=== PATIENT | female | born 1940 | race Caucasian/White ===

== ENCOUNTER 2022-01-12 00:19 | Inpatient (IN) | payer OTHER ==
[~2022-01-12] VITALS: Ht 152.4 cm; Wt 59.0 kg
--- NOTE | 2022-01-12 00:25 | NUR ---
TO ER BED 8. MARLO FROM [facility] FOR SOB. ARRIVED ON CPAP. PT AAOX1. RT AT BEDSIDE, SWITCHED TO 15L ON NONREBREATHER O2 SAT @ 98 . CONNECTED TO MONITOR. MULTIPLE SKIN TEARS NOTED ON ARRIVAL, CLEANED AND DRESSED. MD AT BEDSIDE
--- NOTE | 2022-01-12 00:32 | NUR ---
BLOOD COLLECTED AND SENT TO LAB
--- NOTE | 2022-01-12 00:33 | NUR ---
CHAMBER MAGISTRATE AT PT'S BEDSIDE
--- NOTE | 2022-01-12 00:36 | NUR ---
URINE COLLECTED AND SENT TO LAB
--- NOTE | 2022-01-12 00:36 | NUR ---
COVID SWAB DONE AND SENT TO LAB
--- NOTE | 2022-01-12 00:37 | NUR ---
EMT AT BEDSIDE FOR EKG
[2022-01-12] MEDS ORDERED: ACETAMINOPHEN 650 MG/SUPP.RECT RC ONE ×2 (00:43→01:00)
[2022-01-12 00:49] LABS: BASOPHILS % (AUTO) 0.5 % (0.0-2.0); EOSINOPHILS % (AUTO) 0.6 % (0.0-6.0); HEMATOCRIT 42 % (33-45); HEMOGLOBIN 13.9 g/dL (11.5-14.8); LYMPHOCYTES # (AUTO) 2.7 K/uL (0.8-4.8); LYMPHOCYTES % (AUTO) 31.4 % (20.0-44.0); MEAN CORPUSCULAR HGB CONC 33 g/dl (31.0-36.0); MEAN CORPUSCULAR VOLUME 87 fL (82-100); MONOCYTES # (AUTO) 0.7 K/uL (0.1-1.30); MONOCYTES % (AUTO) 8.6 % (2.0-12.0); NEUTROPHILS % (AUTO) 58.9 % (43.0-81.0); PLATELET COUNT (AUTO) 245 K/uL (150-450); RED BLOOD CELL COUNT(AUTO) 4.83 MIL/uL (4.0-5.2); WHITE BLOOD COUNT (AUTO) 8.5 K/uL (4.3-11.0)
[2022-01-12] MEDS ORDERED: VANCOMYCIN 1 GM VIAL ONE (00:56)
[2022-01-12] MEDS ORDERED: PIPERACILLIN /TAZOBACTAM 3.375 G VIAL IV ONE (00:56)
[2022-01-12] MEDS ORDERED: APIX5TAB4 PO (00:58)
[2022-01-12] MEDS ORDERED: DIPH1TAB PO (00:58)
[2022-01-12] MEDS ORDERED: PANT40TA49 PO (00:58)
[2022-01-12] MEDS ORDERED: TRAZ-257 PO (00:58)
[2022-01-12] MEDS ORDERED: ARIP10TA9 PO (00:58)
[2022-01-12] MEDS ORDERED: BALS750C7 PO (00:58)
[2022-01-12] MEDS ORDERED: METO25TA4 PO (00:58)
[2022-01-12] MEDS ORDERED: CLON0.5T PO (00:58)
[2022-01-12] MEDS ORDERED: ESCI5TAB PO (00:58)
[2022-01-12] MEDS ORDERED: VANCOMYCIN 1 GM in IV D5W 250 ML IV ONE (01:00)
[2022-01-12] MEDS ORDERED: PIPERACILLIN /TAZOBACTAM 3.375 G in IV D5W 50 ML IV ONE (01:00)
[2022-01-12 01:14] LABS: ALANINE AMINOTRANSFERASE 12 U/L (12-78); ALBUMIN 2.3 g/dL (3.4-5.0); ALKALINE PHOSPHATASE 64 U/L (46-116); ASPARTATE AMINOTRANSFERASE 34 U/L (15-37); BILIRUBIN,TOTAL 0.5 mg/dL (0.2-1.0); CALCIUM, SERUM 9.2 mg/dL (8.5-10.1); CARBON DIOXIDE 35 mmol/L (21-32); CHLORIDE 101 mmol/L (98-107); CREATININE 0.6 mg/dL (0.6-1.3); GLUCOSE 105 mg/dL (74-106); POTASSIUM 4.3 mmol/L (3.5-5.1); SODIUM SERUM 137 mmol/L (136-145); TOTAL PROTEIN, SERUM 6.6 g/dL (6.4-8.2); UREA NITROGEN, BLOOD 10 mg/dL (7-18)
[2022-01-12 01:46] LABS: BILIRUBIN,URINE NEGATIVE (NEGATIVE); COLOR,URINE YELLOW (YELLOW); LEUKOCYTE ESTERASE ,URINE NEGATIVE (NEGATIVE); NITRITE, URINE NEGATIVE (NEGATIVE); PROTEIN,URINE NEGATIVE (NEGATIVE); UGLUCOSE NEGATIVE (NEGATIVE); UROBILINOGEN,URINE 0.2 EU/dL (0.2)
--- NOTE | 2022-01-12 03:00 | NUR ---
REC' VERBAL AUTH FROM IRIS AT [facility] TO ADMIT THE PATIENT HERE
--- NOTE | 2022-01-12 03:07 | NUR ---
DR CORBIN ON THE PHONE WITH DR GALVIN
--- NOTE | 2022-01-12 03:32 | NUR ---
ROOM 323-1
--- NOTE | 2022-01-12 03:47 | NUR ---
REPORT GIVEN TO KLEVER JOHNSON
[2022-01-12 04:15] VITALS: BP 107/58
[2022-01-12] MEDS ORDERED: ACETAMINOPHEN 325 MG TABLET PO PRN (04:30)
--- NOTE | 2022-01-12 05:17 | NUR ---
RN NOTES; RECEIVED PT FROM ER IN RM 323-1 AOX1-2 WITH 10L OXYGEN VIA NC EMERALD WELL SATTING 98%.NO SIGN SOB/DISTRESS NOTED.NO COMPLAINE OF PAIN/DISCOMFORT AT THIS TIME.IV SITE R WRIST 20G.SL PATENT AND INTACT.PT WAS REORIENT THE RM AND VERBALLY UNDERSTANDING.SAFETY MEASURE INPLACE.CALL LIGHT WITHIN REACH.WILL CONTINUE TO MONITOR.
--- NOTE | 2022-01-12 06:25 | NUR ---
RN CLOSING NOTES; PT IN BED SLEEPING BUT EASY TO AROUSED.AOX1-2 EMERALD WELL 10L O2 VIA NC SATTING 97.4,NO SIGN SOB/DISTRESS NOTED.DUE MEDS GIVEN ORDERED,ALL NEEDS ATTENDED.IV SITE ON R WRIST 20G SALINE LOCKED.PATENT AND INTACT.SAFETY MEASURED IN PLACE.CALL LIGHT WITHIN REACH.WILL ENDORSED TO NEXT SHIFT.
--- NOTE | 2022-01-12 07:41 | NUR ---
RN OPENING NOTE RECEIVED REPORT FROM NIGHTSHIFT RN. PATIENT CURRENTLY IN BED RESTING. ON ROOM AIR. PER NIGHTSHIFT RN PATIENT IS A/O TIMES 1-2. ATTACHED TO EXTERNAL RECORDS MANAGEMENT DIRECTOR READING SINUS RHYTHM IN THE 70S. LANDON CATHETER ATTACHED DRAINING URINE. SKIN ALTERATIONS DOCUMENTED. IV ACCESS ON RIGHT HAND 20 GAUGE SALINE LOCK, FLUSHING EASILY WITH NO RESISTANCE. SAFETY MEASURES IMPLEMENTED, BED IN LOWEST LOCKED POSITION, SIDE RAILS UP, CALL LIGHT WITHIN REACH. WILL CONTINUE PLAN OF CARE AND ANTICIPATE NEEDS.
[2022-01-12] MEDS: PIPERACILLIN /TAZOBACTAM 3.375 G in IV D5W 50 ML IV SCH ×3 (08:14→17:18)
[2022-01-12] MEDS: PANTOPRAZOLE 40 MG TABLET.DR PO SCH (08:30)
--- NOTE | 2022-01-12 08:31 | NUR ---
NON ADMIN FOR PROTONIX. PATIENT HAS EATEN BREAKFAST. MEDICATION WILL NOT HAVE DESIRED EFFECTS IF TAKEN AFTER BREAKFAST. WILL CONTINUE PLAN OF CARE.
[2022-01-12] MEDS: DIPHENOXYLATE HCL/ATROP SULF 1 UDTAB TABLET PO SCH ×3 (09:00→17:18)
[2022-01-12] MEDS ORDERED: APIXABAN 5 MG TABLET PO SCH (09:00)
[2022-01-12] MEDS: BALSALAZIDE DISODIUM 750 MG CAPSULE PO SCH ×3 (09:00→17:00)
--- NOTE | 2022-01-12 09:11 | NUR ---
PROVIDER REQUESTED OXYGEN SATURATION READING FOR PATIENT ON ROOM AIR. DURING ASSESSMENT OXYGEN SATURATION ON ROOM AIR WAS IN THE 90S. PROVIDER GAVE VERBAL ORDER TO SWITCH FROM SIMPLE FACE MASK TO NASAL CANULA RUNNING 1-2 LITERS OXYGEN PER MINUTE. WILL CARRY OUT ORDER AND CONTINUE PLAN OF CARE.
[2022-01-12] MEDS: clonazePAM 0.5 MG TABLET PO SCH ×2 (09:28→20:53)
[2022-01-12] MEDS: METOPROLOL SUCCINATE 25 MG TAB.SR.24H PO SCH (09:30)
[2022-01-12] MEDS: ARIPIPRAZOLE 5 MG TABLET PO SCH (09:30)
[2022-01-12] MEDS: ESCITALOPRAM OXALATE (10 MG) 10 MG TABLET PO SCH (09:31)
[2022-01-12 11:07] VITALS: BP 124/65
[2022-01-12] MEDS: IPRATROPIUM NEB FS 0.5 MG/2.5 ML AMPUL.NEB NEB SCH ×3 (16:16→23:02)
[2022-01-12 16:26] VITALS: BP 122/60
[2022-01-12] MEDS: APIXABAN 5 MG TABLET PO SCH (17:21)
--- NOTE | 2022-01-12 18:45 | NUR ---
RN CLOSING NOTE PATIENT CURRENTLY IN BED RESTING. ON SUPPLEMENTAL OXYGEN 2 LITERS VIA NASAL CANULA. PATIENT IS A/O TIMES 1-2. ATTACHED TO EXTERNAL MANAGER PLAN READING SINUS RHYTHM AT 79 BEATS PER MINUTE. LANDON CATHETER ATTACHED DRAINING CLEAR YELLOW URINE. SKIN ALTERATIONS DOCUMENTED. IV ACCESS ON RIGHT HAND 20 GAUGE SALINE LOCK, FLUSHING EASILY WITH NO RESISTANCE. SAFETY MEASURES IMPLEMENTED, BED IN LOWEST LOCKED POSITION, SIDE RAILS UP, CALL LIGHT WITHIN REACH. WILL ENDORSE TO NIGHTSHIFT RN FOR CONTINUATION OF CARE.
[2022-01-12] MEDS ORDERED: ONDANSETRON HCL/PF 4 MG/2 ML VIAL IV PRN (19:00)
--- NOTE | 2022-01-12 19:15 | NUR ---
RN opening notes Pt is laying in bed comfortably watching TV. Pt is alert and orientedX2. On 2 L NC. No SOB. No SOB. No S/S of distress noted. IV site at R hand# 20 is clean, intact and flushes well. Tele monitor showed SR hr at 75. Mcnulty cath is inplaced and draining yellow urine. safety precautions is maintained. bed at low position, brakes locked, side rails upX3, hob elevated, bed alarm is on and call light is within reach. Will continue to monitor.
[2022-01-12 20:00] VITALS: BP 103/52
[2022-01-12] MEDS: ALBUTEROL HALF STRENGTH 1.25 MG/3 ML VIAL.NEB NEB SCH ×2 (20:11→23:02)
[2022-01-12] MEDS ORDERED: TRAZODONE 50 MG TABLET PO SCH (22:00)
[2022-01-12] MEDS ORDERED: VANCOMYCIN 1 GM in IV D5W 250 ML IV SCH (23:00)
[2022-01-13] VITALS: BP 110/60
[2022-01-13] MEDS: PIPERACILLIN /TAZOBACTAM 3.375 G in IV D5W 50 ML IV SCH ×3 (00:58→12:03)
[2022-01-13] MEDS: IPRATROPIUM NEB FS 0.5 MG/2.5 ML AMPUL.NEB NEB SCH ×4 (03:30→15:16)
[2022-01-13] MEDS: ALBUTEROL HALF STRENGTH 1.25 MG/3 ML VIAL.NEB NEB SCH ×4 (03:30→15:16)
[2022-01-13 04:00] VITALS: BP 124/68
[2022-01-13 06:06] LABS: BASOPHILS % (AUTO) 0.3 % (0.0-2.0); EOSINOPHILS % (AUTO) 0.7 % (0.0-6.0); HEMATOCRIT 35 % (33-45); LYMPHOCYTES # (AUTO) 1.8 K/uL (0.8-4.8); LYMPHOCYTES % (AUTO) 25.2 % (20.0-44.0); MEAN CORPUSCULAR HGB CONC 34 g/dl (31.0-36.0); MEAN CORPUSCULAR VOLUME 86 fL (82-100); MONOCYTES # (AUTO) 0.9 K/uL (0.1-1.30); MONOCYTES % (AUTO) 12.9 % (2.0-12.0); NEUTROPHILS # (AUTO) 4.3 K/uL (1.8-8.9); NEUTROPHILS % (AUTO) 60.9 % (43.0-81.0); PLATELET COUNT (AUTO) 239 K/uL (150-450); RED BLOOD CELL COUNT(AUTO) 4.11 MIL/uL (4.0-5.2); WHITE BLOOD COUNT (AUTO) 7.1 K/uL (4.3-11.0)
--- NOTE | 2022-01-13 06:30 | NUR ---
RN closing notes Pt is resting in bed comfortably. Pt is alert and orientedX2. On 2 L NC. No SOB. No SOB. No S/S of distress noted. IV site at R hand# 20 is clean, intact and SL. Tele monitor showed Sr hr at 90. Mcnulty cath is inplaced and draining dark yellow urine 600 ml. Routine meds were given as ordered. Kept Pt clean, dry and comfortable. wound care provided as ordered. safety precautions is maintained. bed at low position, brakes locked, side rails upX3, hob elevated, bed alarm is on and call light is within reach. Will endorse to am nurse for DESMOND.
[2022-01-13 07:01] LABS: CALCIUM, SERUM 8.9 mg/dL (8.5-10.1); CREATININE 0.6 mg/dL (0.6-1.3)
--- NOTE | 2022-01-13 07:19 | NUR ---
RECIPROCATING DRILL OPERATOR OPENING NOTES PATIENT RECEIVED AWAKE IN BED IN NO ACUTE SIGN SOF DISTRESS. HOB ELEVATED. A/O TIMES 1-2. VERBALLY RESPONSIVE, NO S/S OF PAIN OBSERVED AT THIS TIME. ON SUPPLEMENTAL O2 VIA N/C @ 2LPM, TOLERATING WELL WITH NO SOB NOTED. ON TELE-MONITOR WITH CURRENT READING OF NSR, HR 89, NO C/O CARDIAC DISTRESS VOICED AT THIS TIME. LANDON CATHETER IN PLACE AND DRAINING CLEAR YELLOW URINE TO GRAVITY. IV ACCESS ON RIGHT HAND G#20 GAUGE INTACT AND PATENT. SAFETY MEASURES IN PLACE: BED IN LOWEST LOCKED POSITION, SIDE RAILS UPX3, CALL LIGHT WITHIN REACH. WILL CONTINUE TO MONITOR PT ACCORDINGLY.
[2022-01-13] MEDS: PANTOPRAZOLE 40 MG TABLET.DR PO SCH (07:32)
[2022-01-13 08:00] VITALS: BP 127/65
--- NOTE | 2022-01-13 08:02 | NUR ---
WOUND CARE CONSULT: PT PRESENTS WITH MULTIPLE AREAS OF SKIN DISCOLORATION, RAISED AREAS ON SKIN INCLUDING LEFT HAND/WRIST AND SIGNIFICANT SKIN TEARS TO LEFT WRIST AND ARM, SCABS TO RT ARM AND LOWER LEG WITH RAISED AREA TO RT LOWER LEG AND RASH TO BUTTOCKS WITH SOME GLUTEAL CREASE OPEN SKIN, ALL PRESENT ON ADMISSION. BARBI HERNANDEZ NOTED. RECOMMEND SURGICAL AND DPM CONSULTS. DR CHANDLER TELLEZ AND DR MITCHELL CALLED FOR CONSULT REQUESTS. DISCUSSED WOUND CARE AND SKIN PROTECTION RECOMMENDATIONS WITH NURSING STAFF. IN AGREEMENT WITH PLAN OF CARE. Addendum: 01/13/22 at 0808 by HARPREET PERALTA WNDNU Amended: Links added.
[2022-01-13] MEDS ORDERED: AMOX-430 PO (08:29)
[2022-01-13 08:35] LABS: POTASSIUM 2.8 mmol/L (3.5-5.1)
[2022-01-13 08:58] VITALS: BP 127/65
[2022-01-13] MEDS: METOPROLOL SUCCINATE 25 MG TAB.SR.24H PO SCH (08:58)
[2022-01-13] MEDS: clonazePAM 0.5 MG TABLET PO SCH (08:58)
[2022-01-13] MEDS: ESCITALOPRAM OXALATE (10 MG) 10 MG TABLET PO SCH (08:58)
[2022-01-13] MEDS: DIPHENOXYLATE HCL/ATROP SULF 1 UDTAB TABLET PO SCH ×2 (08:58→13:09)
[2022-01-13] MEDS: ARIPIPRAZOLE 5 MG TABLET PO SCH (08:58)
[2022-01-13] MEDS: APIXABAN 5 MG TABLET PO SCH (09:00)
[2022-01-13] MEDS ORDERED: POTASSIUM CHLORIDE 20 MEQ TAB.PRT.SR PO ONE (09:00)
[2022-01-13] MEDS ORDERED: CLOTRIMAZOLE 1% 15 GM TUBE TP SCH (09:00)
[2022-01-13] MEDS: BALSALAZIDE DISODIUM 750 MG CAPSULE PO SCH ×2 (09:00→13:00)
--- NOTE | 2022-01-13 09:43 | NUR ---
RN NOTES RECEIVED CALL FROM CHIEF SECURITY AND SAFETY OFFICER CONSUELO THAT PT HAS LOW POTASSIUM 2.8. DR GALVIN ON UNIT AND MADE AWARE AND ORDERED K-DUR 80MEQ PO. MED GIVEN TO PT AND TOLERATED WELL.
--- NOTE | 2022-01-13 12:39 | NUR ---
RN NOTES SPOKED TO [facility] WATER METER READER MARCUS AND REQUESTED PRESCRIPTION OF AUGMENTIN TO BE FAXED TO [facility] AND WAS DONE AND CONFIRMED THAT PHARMACY RECEIVED IT.
--- NOTE | 2022-01-13 14:41 | NUR ---
RN NOTES CALLED [facility], SPOKED TO EVENT PLANNER PRATIMA REGARDING PT'S D/C INSTRUCTIONS. ALSO LEFT VOICEMAIL TO PT'S SON DURAN THAT PT WILL BE TRANSFERRED BACK TO [facility] THIS AFTERNOON.
--- NOTE | 2022-01-13 16:56 | NUR ---
RN DISCHARGED NOTES PT DISCHARGED TO [facility] IN STABLE CONDITION.PT IS A/O X2-3. VERBALLY RESPONSIVE. ALL BELONGINGS ACCOUNTED FOR. IV ACCESS ON RIGHT HAND G#20 REMOVED WITH MINIMAL BLEEDING NOTED AT SITE DUE TO PT RECEIVING ELIQUIS BID, DRY PRESSURE DRESSING APPLIED AT SITE. PHOTO OF SKIN ISSUES TAKEN AND FILED ON HER CHART. CALLED AND DISCHARGE INSTRUCTIONS GIVEN EARLIER TO ERIS, RESERVATION SALES AGENT OF [facility] . LANDON CATHETER REMOVED WITH 400ML OUTPUT NOTED. PT LEFT UNIT @ 1645 VIA GURNEY AND ON 02 VIA N/C AT 2LPM, TOLERATING WELL WITH NO SOB NOTED ACCOMPANIED BY 3 EMT'S FROM [facility]. MD AND CHARGE NURSE AWARE OF DISCHARGE.
[2022-01-15] MEDS ORDERED: APIXABAN 5 MG TABLET PO SCH (09:00)
== END 2022-01-13 16:45 | DRG 177 ==
LOC: EDSEX 00:21 → ER 00:21 → TELE 03:41
PROVIDERS: ADMIT Internal Medicine; ATTEND Internal Medicine
DX: J69.0 Pneumonitis due to inhalation of food and vomit (principal); J96.21 Acute and chronic respiratory failure with hypoxia; J96.22 Acute and chronic respiratory failure with hypercapnia; J98.11 Atelectasis; Z66 Do not resuscitate; I10 Essential (primary) hypertension; Z79.01 Long term (current) use of anticoagulants; Z79.899 Other long term (current) drug therapy; F32.A Depression, unspecified; F41.9 Anxiety disorder, unspecified; Z86.718 Personal history of other venous thrombosis and embolism; K52.9 Noninfective gastroenteritis and colitis, unspecified; F39 Unspecified mood [affective] disorder; M06.9 Rheumatoid arthritis, unspecified; M20.41 Other hammer toe(s) (acquired), right foot; M20.42 Other hammer toe(s) (acquired), left foot; Z74.01 Bed confinement status; S81.801A Unspecified open wound, right lower leg, initial encounter; X58.XXXA Exposure to other specified factors, initial encounter; Y92.9 Unspecified place or not applicable
CPT/HCPCS: 36415; 71045-TC; 80048-TC; 80076-TC; 83605-TC; 83880; 84484-TC; 85025-TC; 85730-TC; 87040-TC; 87081-TC; 92526; 92611-TC; 93307-TC; 94799-TC; A6253; A6403; C9803; G0378; J2543; J3370; J7050; J7060

== ENCOUNTER 2022-01-28 06:06 | Inpatient (IN) | payer OTHER ==
[~2022-01-28] VITALS: Ht 152.4 cm; Wt 61.7 kg
[~2022-01-28 06:06] MED LIST: AMOX-430 PO; APIX5TAB4 PO; ARIP10TA9 PO; BALS750C7 PO; CLON0.5T PO; DIPH1TAB PO; ESCI5TAB PO; METO25TA4 PO; PANT40TA49 PO; TRAZ-257 PO
--- NOTE | 2022-01-28 06:21 | NUR ---
PT BIBRA FOR C/O SOB AND LOW O2 SAT 90% RA. PT ARRIVED VIA EMS ON 15LPM NRB AT 98%. PT AWAKE AND ALERT X3 BREATHING UNLANORED. NOTED BUE EDEMA X1 WEEK PER PT. PLACED ON MONITOR AND V/S WNL. WAS AT BEDSIDE FOR EVAL.
--- NOTE | 2022-01-28 06:25 | NUR ---
22g ESTABLISHED AT . BLOOD DRAWN AND SENT TO LAB
[2022-01-28] MEDS ORDERED: VANCOMYCIN 1 GM in IV D5W 250 ML IV ONE (06:30)
[2022-01-28] MEDS ORDERED: PIPERACILLIN /TAZOBACTAM 3.375 G VIAL IV ONE (06:30)
[2022-01-28] MEDS ORDERED: PIPERACILLIN /TAZOBACTAM 3.375 G in IV D5W 50 ML IV ONE (06:30)
--- NOTE | 2022-01-28 06:31 | NUR ---
BLUE COLLECTED AND SENT TO LAB
[2022-01-28 06:45] LABS: BASOPHILS % (AUTO) 0.4 % (0.0-2.0); EOSINOPHILS % (AUTO) 1.4 % (0.0-6.0); HEMATOCRIT 42 % (33-45); HEMOGLOBIN 13.3 g/dL (11.5-14.8); LYMPHOCYTES # (AUTO) 1.5 K/uL (0.8-4.8); LYMPHOCYTES % (AUTO) 14.9 % (20.0-44.0); MEAN CORPUSCULAR HGB CONC 32 g/dl (31.0-36.0); MEAN CORPUSCULAR VOLUME 87 fL (82-100); MONOCYTES % (AUTO) 10.6 % (2.0-12.0); NEUTROPHILS # (AUTO) 7.1 K/uL (1.8-8.9); NEUTROPHILS % (AUTO) 72.7 % (43.0-81.0); PLATELET COUNT (AUTO) 302 K/uL (150-450); RED BLOOD CELL COUNT(AUTO) 4.75 MIL/uL (4.0-5.2); WHITE BLOOD COUNT (AUTO) 9.8 K/uL (4.3-11.0)
--- NOTE | 2022-01-28 06:47 | NUR ---
PT TRANSPORTED TO [facility]
[2022-01-28 06:58] LABS: CALCIUM, SERUM 9.7 mg/dL (8.5-10.1); CARBON DIOXIDE 35 mmol/L (21-32); CHLORIDE 104 mmol/L (98-107); CREATININE 0.6 mg/dL (0.6-1.3); GLUCOSE 114 mg/dL (74-106); POTASSIUM 3.5 mmol/L (3.5-5.1); SODIUM SERUM 142 mmol/L (136-145); UREA NITROGEN, BLOOD 11 mg/dL (7-18)
[2022-01-28] MEDS ORDERED: IV NS 0.9% 1,000 ML IV ONE (07:00)
[2022-01-28] MEDS ORDERED: VANCOMYCIN 1 GM VIAL ONE (07:06)
[2022-01-28 07:12] LABS: ALANINE AMINOTRANSFERASE 11 U/L (12-78); ALBUMIN 2.4 g/dL (3.4-5.0); ALKALINE PHOSPHATASE 65 U/L (46-116); ASPARTATE AMINOTRANSFERASE 14 U/L (15-37); BILIRUBIN,DIRECT 0.1 mg/dL (0.0-0.2); BILIRUBIN,TOTAL 0.4 mg/dL (0.2-1.0)
[2022-01-28] MEDS ORDERED: FUROSEMIDE 40 MG/4 ML VIAL IV ONE (09:00)
[2022-01-28] MEDS ORDERED: FUROSEMIDE 40 MG/4 ML VIAL ONE (09:08)
--- NOTE | 2022-01-28 09:33 | NUR ---
CONTACTED DR. GALVIN TO CALL US BACK.
--- NOTE | 2022-01-28 09:52 | NUR ---
DR. GALVIN SPEAKING WITH DR. RODRIGUEZ
[2022-01-28] MEDS ORDERED: ALBUTEROL FS 2.5 MG/0.5 ML VIAL.NEB NEB PRN (13:30)
--- NOTE | 2022-01-28 16:39 | NUR ---
GOT BED 103
--- NOTE | 2022-01-28 17:00 | NUR ---
REPORT GIVEN TO ZANDER ERNST FOR DESMOND
--- NOTE | 2022-01-28 17:21 | NUR ---
TRANSFERRED TO BED 103 IN STABLE CONDITION
[2022-01-28] MEDS: PIPERACILLIN /TAZOBACTAM 3.375 G in IV D5W 50 ML IV SCH ×2 (18:37→23:34)
[2022-01-28] MEDS: APIXABAN 5 MG TABLET PO SCH (18:38)
[2022-01-28] MEDS: DIPHENOXYLATE HCL/ATROP SULF 1 UDTAB TABLET PO SCH (18:39)
--- NOTE | 2022-01-28 18:50 | NUR ---
ER TRANSFER CLOSING NOTES PATIENT 81 FEMALE YEARS OLD. A/O X 4. DNR NO ALLERGY.DIAGNOSED WITH SOB PATIENT CAME [facility]OM HOME. MED SURG. PO REGULAR DIET. IV LFA 22 GAUGE. PATENT FLUSHING. PATIENT ON DIAPER. COMMUNICATE ON HER NEEDS. COVID-19 NEGATIVE. BED ALARMON, [place] LIGHT WITHIN REACH, NO S/S OF DISTRESS. WILL ENDORSE THE PATIENT TO THE [place] ACTOR NURSE FOR THE DESMOND.
--- NOTE | 2022-01-28 19:46 | NUR ---
MS RN OPENING NOTE RECEIVED PT AWAKE IN BED. A/O X3 AND ABLE TO MAKE NEEDS KNOWN. PT ON O2 @ 2.5 LPM VIA NC, TOLERATING WELL. NO SOB OR S/S OF RESPIRATORY DISTRESS. BREATHING EVEN AND UNLABORED. IV ACCESS LFA 22 GAUGE, INTACT AND PATENT. SAFETY PRECAUTIONS IN PLACE. BED IN LOWEST LOCKED POSITION, HOB ELEVATED, SIDE RAILS UP X3, AND CALL LIGHT AND TABLE WITHIN REACH. ALL NEEDS MET AT THIS TIME.
[2022-01-28 20:00] VITALS: BP 112/60
[2022-01-28] MEDS: clonazePAM 0.5 MG TABLET PO SCH (21:04)
[2022-01-28] MEDS: TRAZODONE 50 MG TABLET PO SCH (21:05)
[2022-01-29 04:00] VITALS: BP 110/77
[2022-01-29] MEDS: PIPERACILLIN /TAZOBACTAM 3.375 G in IV D5W 50 ML IV SCH ×4 (05:34→23:41)
--- NOTE | 2022-01-29 06:50 | NUR ---
MS RN CLOSING NOTE PT AWAKE IN BED. A/O X2-3 AND ABLE TO MAKE NEEDS KNOWN. PT ON O2 @ 3 LPM VIA NC, TOLERATING WELL. NO SOB OR S/S OF RESPIRATORY DISTRESS. BREATHING EVEN AND UNLABORED. IV ACCESS LFA 22 GAUGE, INTACT AND PATENT. ALL DUE MEDS GIVEN ORDERED. TURNED AND REPOSITIONED Q2H. SAFETY PRECAUTIONS IN PLACE AT ALL TIMES. BED IN LOWEST LOCKED POSITION, HOB ELEVATED, SIDE RAILS UP X3, AND CALL LIGHT AND TABLE WITHIN REACH. ALL NEEDS MET AT THIS TIME AND WILL ENDORSE TO ONCOMING NURSE FOR DESMOND.
[2022-01-29] MEDS ORDERED: AMOX-430 PO (07:12)
[2022-01-29] MEDS: PANTOPRAZOLE 40 MG TABLET.DR PO SCH (07:30)
--- NOTE | 2022-01-29 07:30 | NUR ---
TELE/MS RN OPENING NOTE PATIENT IS ALERT AND ORIENTED X2-3. PATIENT IS ON O2 AT 3 LITERS PER MINUTE VIA NASAL CANNULA TOLERATING AT 95.NO SIGNS OF SOB OR DISCOMFORT.PATIENT HAS IV ACCESS ON LEFT FOREARM 22 GUAGE. PATIENT HAS EDEMA ON UPPER EXTREMITIES. INTACT AND PATENT. ALL SAFETY MEASURES IN PLACE.CALL LIGHT WITH REACH. BED LOCKED AT LOWEST POSITION. SIDE RAILS UP X2.
--- NOTE | 2022-01-29 07:50 | NUR ---
seen by and orders noted
[2022-01-29 08:00] VITALS: BP 127/68
--- NOTE | 2022-01-29 08:51 | NUR ---
patient refused MRI with and without contrast patient refused MRI with and without contrast but encouraged,his son was notified and left message re; patients refuse of MRI of abdomen
[2022-01-29] MEDS: DIPHENOXYLATE HCL/ATROP SULF 1 UDTAB TABLET PO SCH ×3 (09:00→17:37)
[2022-01-29] MEDS: ARIPIPRAZOLE 5 MG TABLET PO SCH (09:00)
[2022-01-29] MEDS: clonazePAM 0.5 MG TABLET PO SCH ×2 (09:00→20:29)
[2022-01-29] MEDS: ESCITALOPRAM OXALATE (10 MG) 10 MG TABLET PO SCH (09:00)
[2022-01-29] MEDS: APIXABAN 5 MG TABLET PO SCH ×2 (09:00→17:39)
[2022-01-29] MEDS: METOPROLOL SUCCINATE 25 MG TAB.SR.24H PO SCH (09:00)
--- NOTE | 2022-01-29 09:53 | NUR ---
holding morning meds due to pending MRI
--- NOTE | 2022-01-29 10:00 | NUR ---
FAMILY AT BEDSIDE
--- NOTE | 2022-01-29 12:00 | NUR ---
PATIENT'S SON SIGNED CONSENT FOR CT SCAN OF CHEST WITH AND WITHOUT CONSENT
--- NOTE | 2022-01-29 12:08 | NUR ---
patient left for MRI
--- NOTE | 2022-01-29 15:00 | NUR ---
PATIENT SON BROUGHT MEDICATION COLAZAL. MEDICATION GIVEN TO PHARMACY
[2022-01-29 16:00] VITALS: BP 145/75
[2022-01-29] MEDS: BALSALAZIDE DISODIUM 750 MG CAPSULE PO SCH (17:37)
--- NOTE | 2022-01-29 18:30 | NUR ---
TELE/MS RN NOTE TRIED TO START IV MULTIPLE TIMES BUT PATIENT REFUSED
--- NOTE | 2022-01-29 19:15 | NUR ---
RN NOTES: RECEIVED ASLEEP ON BED, ON O2 AT 3L/MIN VIA NC, ORIENTED TO UNIT AND STAFF, PER ENDORSEMENT SHE REFUSED FOR IV CANNULATION, WILL TRY TO OFFER LATER, FOR POSSIBLE CT CHEST WITH/W/O CONTRAST, CONSENT SIGNED,VERIFIED WITH X-RAY DEPARTMENT, DO NOT GIVE BREAKFAST IN THE MORNING, NPO 2-3 HOURS PRIOR TO PROCEDURE.SHE DID NOT AGREE FOR IV REINSERTION, WILL TRY AGAIN LATER.FOR POSSIBLE DISCHARGE TOMORROW ON ATB/PO.SAFETY AND ASPIRATION PRECAUTION OBSERVED.
--- NOTE | 2022-01-29 19:20 | NUR ---
TELE/MS CLOSING NOTE PATIENT IS ALERT AND ORIENTED X2-3. PATIENT IS ON O2 AT 3 LITERS PER MINUTE VIA NASAL CANNULA TOLERATING AT 94%. ALL NEEDS MET. KEPT CLEAN AND DRY. NO SIGNS OF SOB OR DISCOMFORT.PATIENT HAS IV ACCESS ON LEFT FOREARM 22 GUAGE. IV PATENT AND INTACT. PATIENT HAS EDEMA ON UPPER EXTREMITIES. INTACT AND PATENT. ALL SAFETY MEASURES IN PLACE.CALL LIGHT WITH REACH. BED LOCKED AT LOWEST POSITION. SIDE RAILS UP X2.
[2022-01-29 20:00] VITALS: BP 125/77
[2022-01-29] MEDS: TRAZODONE 50 MG TABLET PO SCH (21:10)
--- NOTE | 2022-01-29 21:20 | NUR ---
RN NOTES: AGREE FOR ORAL MEDICATION BUT REFUSED FOR IV CANNULATION, WILL TRY AGAIN LATER.
--- NOTE | 2022-01-29 22:00 | NUR ---
RN NOTES: -EVENING CARE DONE, CLEAN AND CHANGE, REPOSITIONED, DRESSING DONE ON THE LH, NO DRAINAGE,NO BLEEDING, NO SIGN OF INFECTION. -AGREE FOR IV REINSERTION, IV CANNULA INSERTED ON THE RAC G#221 ATTEMPT MADE, WITH BACK FLOW, UPON FLUSHING THERE WAS INFILTRATION, SHE REFUSED FOR ANOTHER INSERTION. -RN EXPLAINED TO HER WE NEED IV SITE FOR HER ANTIBIOTICS, SHE AGREE FOR ANOTHER INSERTION WITH DIFFERENT RN, 1 ATTEMPT MADE,G#22 INSERTED ON THE RIGHT UPPER ARM, WITH GOOD BACK, SECURED WITH TRANSPARENT DRESSING. -DUE IV ANTIBIOTIC GIVEN.
[2022-01-30 04:00] VITALS: BP 130/79
--- NOTE | 2022-01-30 04:11 | NUR ---
RN NOTES: -ASLEEP IN THE NIGHT, IV SITE REMAINS PATENT, TURNED AND REPOSITIONED, KEPT CALL LIGHT WITHIN EASY REACH. -GIVEN SNACK AT 23OO, SHE IS AWARE THAT SHE HAVE PROCEDURE TOMORROW FOR CT CHEST, NPO DURING BREAKFAST TIME. -DOPPLER RESULT WAS SENT BY MORNING SHIFT TO DR. GALVIN, WITH NEW ORDER FOR ECHO.NOTED AND CARRIED OUT.
[2022-01-30] MEDS: PIPERACILLIN /TAZOBACTAM 3.375 G in IV D5W 50 ML IV SCH ×4 (05:03→23:37)
--- NOTE | 2022-01-30 07:20 | NUR ---
RN OPENING NOTES: RECEIVED PATIENT IN BED, ASLEEP, BUT EASILY AROUSES TO VOICE AND TOUCH. PATIENT IS ALERT, ORIENTED X 3. PATIENT HAS NO RESPIRATORY DISTRESS. NO SOB NOTED. ON OXYGEN @ 3L/MIN VIA N/C WITH OXYGEN SATURATION OF 96%. HAS SALINE LOCK ON RIGHT UPPER ARM # 22, PATENT AND FLUSHES WELL. BED LOCKED AND IN LOWEST POSITION. CALL LIGHT WITHIN REACH. ALL SAFETY MEASURES IN PLACE . WILL CONTINUE TO MONITOR PATIENT THROUGHOUT SHIFT. PATIENT IS WAITING TO BE PICKED UP FOR CHEST CT.
--- NOTE | 2022-01-30 07:28 | NUR ---
RN NOTES: AWAKE, ASKING FOR BREAKFAST REMINDED THAT SHE HAS CT CHEST TODAY AND NEEDS TO BE NPO, ON O2 AT 3 LPM VIA NC, SPO2 07%, TURNED AND REPOSITIONED, NPO TILL CT-DONE, NEW LINE;ÁNGEL Morris#22, NO LABS IN THE MORNING, FOR ECHO, ENDORSED FOR CONTINUITY OF CARE, REQUEST MORNING RN IF THEY CAN HAVE A MIDLINE INSERTION IF SHE AGREE, SHE HAS A VERY FRAGILE VEIN.
[2022-01-30] MEDS: PANTOPRAZOLE 40 MG TABLET.DR PO SCH (07:41)
--- NOTE | 2022-01-30 07:49 | NUR ---
SPOKE WITH [facility] AND INQUIRED WHAT TIME WILL THE PATIENT BE PICKED UP IN ORDER TO SEE WHEN CAN SHE EAT AND INFORMED THAT THE PATIENT CAN EAT PRIOR TO THER CT SCAN. GIVEN PATIENT'S BREAKFAST TRAY AND PATIENT WILL BE PICKED UP AFTER 9:00 AM
[2022-01-30] MEDS: ARIPIPRAZOLE 5 MG TABLET PO SCH (08:29)
[2022-01-30] MEDS: clonazePAM 0.5 MG TABLET PO SCH ×2 (08:31→21:08)
[2022-01-30] MEDS: METOPROLOL SUCCINATE 25 MG TAB.SR.24H PO SCH (08:31)
[2022-01-30] MEDS: ESCITALOPRAM OXALATE (10 MG) 10 MG TABLET PO SCH (08:31)
[2022-01-30] MEDS: APIXABAN 5 MG TABLET PO SCH ×2 (08:33→16:36)
[2022-01-30] MEDS: BALSALAZIDE DISODIUM 750 MG CAPSULE PO SCH ×3 (08:33→16:35)
[2022-01-30] MEDS: DIPHENOXYLATE HCL/ATROP SULF 1 UDTAB TABLET PO SCH ×3 (08:36→16:35)
[2022-01-30] MEDS ORDERED: IOHEXOL-300 100 ML VIAL IV ONE (09:33)
--- NOTE | 2022-01-30 09:58 | NUR ---
PATIENT WAS PICKED UP FOR HER CT SCAN BUT WAS TOLD THAT THE IV WAS NOT GOOD AT THIS TIME. CHARGE NURSE NOTIFIED AND ORDERED MIDLINE INSERTION.
--- NOTE | 2022-01-30 10:25 | NUR ---
PATIENT BACK IN THE ROOM IN NO APPARENT DISTRESS WITH ICE BAG PLACED ON PATIENTS' RIGHT UPPER ARM. NO C/O PAIN OR DISCOMFORT.
[2022-01-30] MEDS ORDERED: GADOTERATE MEGLUMINE 5 MMOL/10 ML VIAL IV ONE (11:49)
[2022-01-30 12:00] VITALS: BP 112/60
--- NOTE | 2022-01-30 14:50 | NUR ---
MIDLINE NURSE CAME. PATIENT AND SON DURAN GAVE CONSENT. NURSE INSERTED MIDLINE ON PATIENT'S LEFT UPPER ARM. PATIENT TOLERATED PROCEDURE WELL.
--- NOTE | 2022-01-30 18:42 | NUR ---
RN CLOSING NOTES: PATIENT IN BED, ASLEEP BUT EASILY AROUSES TO VOICE AND TOUCH. PATIENT HAS NO SOB NOTED. ON OXYGEN AT 3L/MIN VIA N/C WITH OXYGEN SATURATION OF 100%. PATIENT HAS MIDLINE ON LEFT UPPER ARM INTACT, FLUSHING WELL, NO S/S INFILTRATION. BED LOCKED AND IN LOWEST POSITION, HOB SLIGHTLY ELEVATED, SR UP X 2, CALL LIGHT WITHIN REACH. WILL ENDORSE TO NEXT SHIFT NURSE FOR CONTINUITY OF CARE.
--- NOTE | 2022-01-30 19:45 | NUR ---
MS RN OPENING NOTES: RECEIVED PATIENT IN BED AWAKE, PATIENT IS ALERT & ORIENTED X 3. PATIENT HAS NO RESPIRATORY DISTRESS. NO SOB NOTED. ON OXYGEN @ 3L/MIN VIA N/C WITH OXYGEN SATURATION OF 96%. HAS LALA MIDLINE #20 INTACT, PATENT AND FLUSHES WELL. BED LOCKED AND IN LOWEST POSITION. CALL LIGHT WITHIN REACH. ALL SAFETY MEASURES IN PLACE . WILL CONTINUE TO MONITOR PATIENT THROUGHOUT SHIFT.
[2022-01-30 20:00] VITALS: BP 103/54
[2022-01-30] MEDS: TRAZODONE 50 MG TABLET PO SCH (21:08)
[2022-01-31] MEDS ORDERED: QUETIAPINE FUMARATE 25 MG TABLET PO ONE (01:00)
--- NOTE | 2022-01-31 01:02 | NUR ---
RN NOTE NOTED PT INCREASING CONFUSION TRYING TO GET OUT FROM THE BED. INFORMED DAY SPA MANAGER HENRY, SHE THEN ORDERED SEROQUEL 25 MG PO ONCE. ORDER TAKEN AND CARRIED OUT. WILL CONT TO MONITOR PT.
[2022-01-31 04:00] VITALS: BP 131/77
[2022-01-31] MEDS: PIPERACILLIN /TAZOBACTAM 3.375 G in IV D5W 50 ML IV SCH (05:21)
--- NOTE | 2022-01-31 06:38 | NUR ---
MS RN CLOSING NOTES PATIENT IN BED, ASLEEP BUT EASILY AROUSES TO VOICE AND TOUCH. PATIENT HAS NO SOB NOTED. ON OXYGEN AT 3L/MIN VIA N/C WITH OXYGEN SATURATION OF 96%. PATIENT HAS MIDLINE ON LEFT UPPER ARM INTACT, FLUSHING WELL, NO S/S INFILTRATION. ALL DUE MEDS GIVEN, KEPT DRY AND CLEAN, BED LOCKED AND IN LOWEST POSITION, SR UP X 2, CALL LIGHT WITHIN REACH. WILL ENDORSE TO AM SHIFT NURSE FOR CONTINUITY OF CARE.
--- NOTE | 2022-01-31 07:20 | NUR ---
MS OPENING NOTES: RECEIVED PATIENT IN BED, ASLEEP BUT EASILY AROUSES TO VOICE AND TACTILE STIMULI. NO RESPIRATORY DISTRESS NOTED. ON OXYGEN AT 3L/MIN VIA N/C WITH OXYGEN SATURATION OF 98%. MIDLINE INTACT ON LEFT UPPER ARM, FLUSHES WELL, NO REDNESS AND SWELLING NOTED. HOB KEPT SLIGHTLY ELEVATED. BED LOCKED AND IN LOWEST POSITION. CALL LIGHT WITHIN REACH. WILL CONTINUE TO MONITOR PATIENT THROUGHOUT SHIFT.
[2022-01-31] MEDS: PANTOPRAZOLE 40 MG TABLET.DR PO SCH (07:35)
[2022-01-31] MEDS: BALSALAZIDE DISODIUM 750 MG CAPSULE PO SCH ×3 (08:33→16:07)
[2022-01-31] MEDS: APIXABAN 5 MG TABLET PO SCH ×2 (08:34→16:07)
[2022-01-31] MEDS: ESCITALOPRAM OXALATE (10 MG) 10 MG TABLET PO SCH (08:35)
[2022-01-31] MEDS: ARIPIPRAZOLE 5 MG TABLET PO SCH (08:35)
[2022-01-31] MEDS: clonazePAM 0.5 MG TABLET PO SCH ×2 (08:35→21:12)
[2022-01-31] MEDS: DIPHENOXYLATE HCL/ATROP SULF 1 UDTAB TABLET PO SCH ×3 (08:35→16:06)
[2022-01-31] MEDS: METOPROLOL SUCCINATE 25 MG TAB.SR.24H PO SCH (08:36)
[2022-01-31] MEDS ORDERED: AMOX-430 PO (09:08)
--- NOTE | 2022-01-31 09:38 | NUR ---
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 RECOMMENDATIONS MADE FOR SKIN PROTECTION AND WOUND CARE. DISCUSSED WITH NURSING STAFF. MD IN AGREEMENT WITH PLAN OF CARE. PT IS ON JESENIA ISOFLEX LOW AIRLOSS BED. MD IN AGREEMENT WITH PLAN OF CARE.
[2022-01-31] MEDS: Z GUARD REMEDY 4 OZ OINT TP SCH (10:00)
[2022-01-31] MEDS ORDERED: Z GUARD REMEDY 4 OZ OINT TP PRN (10:00)
[2022-01-31 12:00] VITALS: BP 134/72
[2022-01-31] MEDS: PIPERACILLIN /TAZOBACTAM 3.375 G in IV D5W 100 ML IV SCH ×2 (12:07→21:12)
--- NOTE | 2022-01-31 18:35 | NUR ---
MS CLOSING NOTES: PATIENT IN BED, AWAKE, ALERT, ORIENTED X 2. NO SOB NOTED. ON OXYGEN a@ 3L/MIN VIA N/C WITH OXYGEN SATURATION OF 97%. IV ACCESS ON LEFT UPPER ARM MIDLINE, INTACT, NO S/S INFILTRATION NOTED, PATENT AND FLUSHES WELL. BED LOCKED AND IN LOWEST POSITION. CALL LIGHT WITHIN REACH. C-DIFF RESULT IS STILL PENDING. WILL ENDORSE TO INCOMING SHIFT FOR CONTINUATION OF CARE.
--- NOTE | 2022-01-31 19:25 | NUR ---
MS RN OPENING NOTES: RECEIVED PATIENT SLEEPING IN BED BUT EASILY AROUSABLE TO TOUCH AND VOICE, A/O X2 WITH PERIODS OF CONFUSION, PATIENT HAS NO RESPIRATORY DISTRESS. NO SOB NOTED. ON OXYGEN @ 3L/MIN VIA N/C WITH OXYGEN SATURATION OF 96%. HAS LALA MIDLINE #20 INTACT, PATENT AND FLUSHES WELL. BED LOCKED AND IN LOWEST POSITION. CALL LIGHT WITHIN REACH. ALL SAFETY MEASURES IN PLACE. WILL CONTINUE TO MONITOR PATIENT THROUGHOUT SHIFT.
[2022-01-31 20:00] VITALS: BP 127/66
[2022-01-31] MEDS: TRAZODONE 50 MG TABLET PO SCH (21:12)
[2022-02-01 04:00] VITALS: BP 126/67
[2022-02-01] MEDS: PIPERACILLIN /TAZOBACTAM 3.375 G in IV D5W 100 ML IV SCH ×2 (04:30→12:25)
--- NOTE | 2022-02-01 07:24 | NUR ---
RN OPENING NOTES: RECEIVED PATIENT SLEEPING IN BED BUT EASILY AROUSABLE TO TOUCH AND VOICE, A/O X1 WITH PERIODS OF CONFUSION, PATIENT HAS NO RESPIRATORY DISTRESS. NO SOB NOTED. ON OXYGEN @ 3L/MIN VIA N/C. HAS LALA MIDLINE #20 INTACT, PATENT AND FLUSHES WELL. BED LOCKED AND IN LOWEST POSITION. CALL LIGHT WITHIN REACH. ALL SAFETY MEASURES IN PLACE.
[2022-02-01] MEDS: ESCITALOPRAM OXALATE (10 MG) 10 MG TABLET PO SCH (08:59)
[2022-02-01] MEDS: clonazePAM 0.5 MG TABLET PO SCH (08:59)
[2022-02-01] MEDS: BALSALAZIDE DISODIUM 750 MG CAPSULE PO SCH ×3 (08:59→16:35)
[2022-02-01] MEDS: METOPROLOL SUCCINATE 25 MG TAB.SR.24H PO SCH (08:59)
[2022-02-01] MEDS: PANTOPRAZOLE 40 MG TABLET.DR PO SCH (08:59)
[2022-02-01] MEDS: ARIPIPRAZOLE 5 MG TABLET PO SCH (08:59)
[2022-02-01 09:00] VITALS: BP 120/65
[2022-02-01] MEDS: Z GUARD REMEDY 4 OZ OINT TP SCH (09:00)
[2022-02-01] MEDS: APIXABAN 5 MG TABLET PO SCH ×2 (09:01→16:36)
[2022-02-01] MEDS: DIPHENOXYLATE HCL/ATROP SULF 1 UDTAB TABLET PO SCH ×3 (09:03→16:35)
[2022-02-01 12:00] VITALS: BP 115/63
--- NOTE | 2022-02-01 15:19 | NUR ---
RN NOTE C DIFF NEGATIVE PER DR KAMAR RICH TO CONTINUE WITH DC
--- NOTE | 2022-02-01 18:51 | NUR ---
RN CLOSING NOTES PATIENT IN BED, ASLEEP BUT EASILY AROUSES TO VOICE AND TOUCH. PATIENT HAS NO SOB NOTED. ON OXYGEN AT 3L/MIN VIA N/C. PATIENT HAS MIDLINE ON LEFT UPPER ARM INTACT, FLUSHING WELL, NO S/S INFILTRATION. ALL DUE MEDS GIVEN, KEPT DRY AND CLEAN, BED LOCKED AND IN LOWEST POSITION, SR UP X 2, CALL LIGHT WITHIN REACH.
== END 2022-02-01 20:00 | DRG 177 ==
LOC: ER 06:11 → TRANSITION 14:25 → MEDSG1 18:05
PROVIDERS: ADMIT Internal Medicine; ATTEND Internal Medicine
PROC: 05HC33Z Insertion of Infusion Device into Left Basilic Vein, Percutaneous Approach (ICD-10-PCS; principal; 2022-01-30)
DX: J69.0 Pneumonitis due to inhalation of food and vomit (principal); J96.01 Acute respiratory failure with hypoxia; J98.11 Atelectasis; K52.9 Noninfective gastroenteritis and colitis, unspecified; Z20.822 Contact with and (suspected) exposure to COVID-19; I11.0 Hypertensive heart disease with heart failure; I50.9 Heart failure, unspecified; Z66 Do not resuscitate; Z79.01 Long term (current) use of anticoagulants; Z79.899 Other long term (current) drug therapy; F41.9 Anxiety disorder, unspecified; F32.A Depression, unspecified; Z86.718 Personal history of other venous thrombosis and embolism; K86.89 Other specified diseases of pancreas; K83.8 Other specified diseases of biliary tract; K76.89 Other specified diseases of liver; N20.0 Calculus of kidney; D25.9 Leiomyoma of uterus, unspecified; N28.1 Cyst of kidney, acquired
CPT/HCPCS: 36415; 71045-TC; 71250-TC; 74183; 80048-TC; 80076-TC; 83605-TC; 83880; 84484-TC; 85025-TC; 85730-TC; 87040-TC; 87081-TC; 92526; 92611-TC; 93307-TC; 94799-TC; 97116-TC; 97530-TC; A9575; C9803; G0378; J1940; J2543; J3370; J7030; J7050; J7060; Q9967